=== PATIENT | male | born 1970 | race Caucasian/White ===

== ENCOUNTER 2018-10-04 07:21 | Emergency (ER) | payer OTHER ==
[~2018-10-04] VITALS: Ht 172.7 cm; Wt 81.6 kg
== END 2018-10-04 09:33 | disposition home or self-care (01) ==
LOC: ER 07:21
DX: L08.89 Other specified local infections of the skin and subcutaneous tissue (principal)

== ENCOUNTER 2018-12-12 03:48 | Emergency (ER) | payer OTHER ==
[~2018-12-12] VITALS: Ht 172.7 cm; Wt 83.9 kg
[2018-12-12] MEDS ORDERED: INTESTINEX680 M1 PO (05:11)
[2018-12-12] MEDS ORDERED: CLINDAMYCIN HC150 MG (05:51)
[2018-12-12] MEDS ORDERED: NABUMETONE500 MG (05:51)
== END 2018-12-12 05:57 | disposition home or self-care (01) ==
LOC: ER 03:48
DX: L03.011 Cellulitis of right finger (principal); M79.644 Pain in right finger(s)

== ENCOUNTER 2020-05-15 02:13 | Emergency (ER) | payer OTHER ==
[~2020-05-15] VITALS: Ht 172.7 cm; Wt 81.6 kg
[~2020-05-15 02:13] MED LIST: CLINDAMYCIN HC150 MG; INTESTINEX680 M1 PO; NABUMETONE500 MG
[2020-05-15] MEDS ORDERED: HYDROCHLOROTHIA25 MG PO (04:50)
== END 2020-05-15 04:59 | disposition home or self-care (01) ==
LOC: ER 02:13
DX: I16.1 Hypertensive emergency (principal); I10 Essential (primary) hypertension

== ENCOUNTER 2022-05-05 08:16 | Emergency (ER) | payer OTHER ==
[~2022-05-05] VITALS: Ht 172.7 cm; Wt 81.6 kg
[~2022-05-05 08:16] MED LIST changes: +HYDROCHLOROTHIA25 MG PO
== END 2022-05-05 11:42 | disposition home or self-care (01) ==
LOC: ER 08:16
DX: R07.9 Chest pain, unspecified (principal)

== ENCOUNTER 2024-07-17 11:42 | Emergency (ER) | payer OTHER ==
[~2024-07-17] VITALS: Ht 172.7 cm; Wt 81.6 kg
[2024-07-17] MEDS ORDERED: KETOROLAC TROMETHAMINE 60 MG VIAL IM ONE (15:15)
== END 2024-07-17 16:27 | disposition home or self-care (01) ==
LOC: ER 11:44
DX: M94.0 Chondrocostal junction syndrome [Tietze] (principal); M79.10 Myalgia, unspecified site

== ENCOUNTER 2025-04-17 20:04 | Emergency (ER) | payer OTHER ==
[~2025-04-17] VITALS: Ht 172.7 cm; Wt 79.4 kg
== END 2025-04-17 21:28 | disposition home or self-care (01) ==
LOC: EMR PED 20:04 → ER 20:04
DX: I10 Essential (primary) hypertension (principal)

== ENCOUNTER 2025-04-19 19:03 | Emergency (ER) | payer OTHER ==
[~2025-04-19] VITALS: Ht 172.7 cm; Wt 79.4 kg
[2025-04-19 21:39] LABS: BASO % 0.4 % (0.1-1.2); EOS # 0.04 (0.04-0.54); EOS % 0.5 % (0.7-7.0); LYMPH # 1.77 (1.18-3.74); LYMPH % 22.6 % (19.3-53.1); MEAN PLATELET VOLUME 9.40 fl (9.4-12.4); MONO # 0.79 (0.24-0.82); MONO % 10.1 % (4.7-12.5); NEUT # 5.18 (1.56-6.13); NEUT % 66.3 % (34.0-71.1); RED CELL DISTRIBUTION WIDTH 11.7 % (11.6-14.4)
[2025-04-19 22:12] LABS: ALT/SGPT 29.0 U/L (12-78); AST/SGOT 23.0 U/L (15-37); BILIRUBIN TOTAL 0.51 mg/dL (0.3-1.2); BUN CREA RATIO 12.0 (7.0-25.0); CREATININE SERUM 1.06 mg/dL (0.70-1.30); GFR 72.8; GLOBULINA 3.8 G/DL (2.4-3.5); GLUCOSE FASTING 102.0 mg/dL (65-100); LDH 191.0 U/L (87-241); OSMOLALITY SERUM 282.0 MOSM/KG (275-295); PHOSPHOKINASE CREATININE 120.0 U/L (39-308)
== END 2025-04-19 23:55 | disposition home or self-care (01) ==
LOC: ER 19:03
PROVIDERS: Emergency Medicine
DX: R07.89 Other chest pain (principal); I10 Essential (primary) hypertension